=== PATIENT | male | born 1960 | race Caucasian/White ===

== ENCOUNTER → 2025-07-29 11:22 | Outpatient (CLI) | payer MEDICARE, OTHER, SELFPAY ==
--- NOTE | 2025-07-29 11:26 | DI.CT.S_ITS ---
PROCEDURE: CT ABDOMEN PELVIS W CON INDICATIONS: ENTEROGRAPHY TECHNIQUE: After the administration of intravenous contrast, axial sections acquired from the lung bases to the pubic symphysis. Coronal and sagittal reformats were performed. For radiation dose reduction, the following was used: automated exposure control, adjustment of mA and/or kV according to patient size. COMPARISON: None. FINDINGS: Image quality: Diagnostic Lower chest: Unremarkable lung bases. Normal heart size. Liver: Subcentimeter lesions are present, too small to characterize typically cysts. Gallbladder and biliary system: Unremarkable, nondilated Pancreas: No ductal dilation Spleen: Nonenlarged Adrenals: No discrete nodules Kidneys: No solid renal mass or hydronephrosis. Vessels and lymph nodes: The main portal vein is patent. No abdominal aneurysm. Mild aortoiliac atherosclerotic calcifications. No lymphadenopathy by size criteria. Bowel and peritoneum: Possible mild wall thickening of the distal colon and rectum. The appendix is nondilated. Unremarkable CT appearance of the terminal ileum. No area suspicious for active enteritis. No drainable abscess or ascites. Body wall: Mild fat containing right inguinal hernia. Pelvis: There is asymmetric bladder wall thickening along the left. Prostate bed is unremarkable on limited CT evaluation. Bones: No aggressive appearing osseous abnormality. Degenerative osseous changes. IMPRESSION: Possible mild distal colitis and proctitis. Unremarkable CT appearance of the terminal ileum. No bowel obstruction. Asymmetric bladder wall thickening on the left wall. Consider urinalysis and possible cystoscopy correlation. Subcentimeter liver lesions are too small to characterize likely cysts or hemangiomas. These could be confirmed on liver MRI if there is underlying concern for malignancy. Other findings above. Dictated by: Chandler Curtis M.D. on 07/30/2025 at 11:26 Approved by: Chandler Curtis M.D. on 07/30/2025 at 11:33
[2025-07-29 12:09] LABS: Estimated Glomerular Filt Rate > 60 mL/min (>60)
== END ==
PROVIDERS: Radiology Diagnostic Radiology; PCP Family Medicine
DX: K59.00 Constipation, unspecified (principal); K76.9 Liver disease, unspecified; R10.12 Left upper quadrant pain; K40.90 Unilateral inguinal hernia, without obstruction or gangrene, not specified as recurrent; R53.81 Other malaise; R63.4 Abnormal weight loss; Z86.19 Personal history of other infectious and parasitic diseases
CPT/HCPCS: 36415; 74177; 82565; Q9967